=== PATIENT | male | born 1950 | race Caucasian/White ===

== ENCOUNTER 2024-03-21 07:29 | Day surgery (SDC) | payer OTHER ==
[~2024-03-21] VITALS: Ht 167.6 cm; Wt 76.2 kg
[2024-03-21 07:49] VITALS: BP 127/82; PULSE 52; RESP 12; TEMP 98.2; O2SAT 100
[2024-03-21] MEDS ORDERED: EZET10TA48 PO (07:57)
[2024-03-21] MEDS ORDERED: HYDR12.55 PO (07:57)
[2024-03-21] MEDS ORDERED: APIX5TAB3 PO (07:57)
[2024-03-21] MEDS ORDERED: FINA5TAB12 PO (07:57)
[2024-03-21] MEDS ORDERED: TADA5TAB13 PO (07:57)
[2024-03-21] MEDS ORDERED: FLEC100T PO (07:57)
[2024-03-21] MEDS ORDERED: DOXA1TAB2 PO (07:57)
[2024-03-21] MEDS ORDERED: normal saline 1000ml 1,000 ML IV SCH (08:05)
[2024-03-21] MEDS ORDERED: MIDAZolam 1mg/ml 10ml vial IV ONE (08:05)
[2024-03-21] MEDS ORDERED: fentaNYL/PF 50MCG/1 ML 2ML syringe IV ONE (08:05)
== END 2024-03-21 08:30 | disposition home or self-care (01) ==
LOC: SSTAY O 07:29
PROVIDERS: ATTEND Internal Medicine Cardiovascular Disease
DX: I48.0 Paroxysmal atrial fibrillation (principal); Z53.8 Procedure and treatment not carried out for other reasons; I10 Essential (primary) hypertension; E78.00 Pure hypercholesterolemia, unspecified; Z79.01 Long term (current) use of anticoagulants; Z79.1 Long term (current) use of non-steroidal anti-inflammatories (NSAID); Z79.82 Long term (current) use of aspirin; Z79.899 Other long term (current) drug therapy; Z98.890 Other specified postprocedural states; Z82.49 Family history of ischemic heart disease and other diseases of the circulatory system; Z83.42 Family history of familial hypercholesterolemia
CPT/HCPCS: 93005; J7030